=== PATIENT | male | born 1990 | race Two or more races ===

== ENCOUNTER 2024-08-05 13:33 | Emergency (ER) | payer OTHER ==
[~2024-08-05] VITALS: Ht 175.3 cm; Wt 96.0 kg
[2024-08-05 13:59] VITALS: BP 123/88; PULSE 86; RESP 16; TEMP 98.4; O2SAT 96
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
[2024-08-05] MEDS: HYDROcodone-ACET 10/325MG TAB PO ONE (14:27)
[2024-08-05] MEDS: KETOROLAC TROMETH 30 MG/ML 1ML VIAL IM ONE (14:28)
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
[2024-08-05] MEDS ORDERED: NAP500T PO (15:15)
[2024-08-05] MEDS ORDERED: HYDR-4902 PO (15:15)
== END 2024-08-05 15:25 | disposition home or self-care (01) ==
LOC: ER 13:33
DX: S62.636A Displaced fracture of distal phalanx of right little finger, initial encounter for closed fracture (principal); Y04.2XXA Assault by strike against or bumped into by another person, initial encounter; Y93.89 Activity, other specified; Y92.69 Other specified industrial and construction area as the place of occurrence of the external cause; Y99.8 Other external cause status
CPT/HCPCS: 29130; 73130; 96372; 99283; J1885